=== PATIENT | male | born 1980 | race Two or more races ===

== ENCOUNTER 2020-03-17 00:35 | Emergency (ER) | payer MEDICAID ==
[~2020-03-17] VITALS: Ht 170.2 cm; Wt 52.6 kg
--- NOTE | 2020-03-17 00:40 | NUR ---
PT CAME TO THE ED C/O LOWER ABDOMINAL PAIN, TESTICULAR PAIN AND LOWER BACK PAIN. PT ALSO ENDORSES TESTIUCULAR SWELLING. PT AAOX4, RESPIRATIONS EVEN AND UNLABORED ON RA W/ NAD NOTED. PT CONNECTED TO THE MONITOR AND POX.
[2020-03-17] MEDS ORDERED: IBUPROFEN 400 MG TABLET ONE (01:03)
[2020-03-17] MEDS: IBUPROFEN 400 MG TABLET PO ONE (01:06)
[2020-03-17 01:10] LABS: APPEARANCE,URINE Clear (CLEAR); BILIRUBIN,URINE Negative (NEGATIVE); BLOOD, URINE Trace-lysed Ery/uL (NEGATIVE); COLOR,URINE Yellow (YELLOW); KETONES,URINE Negative (NEGATIVE); LEUKOCYTE ESTERASE ,URINE Negative (NEGATIVE); NITRITE, URINE Negative (NEGATIVE); PH,URINE 6.5 (5.0-8.0); PROTEIN,URINE 30 mg/dl (NEGATIVE); UGLUCOSE Negative (NEGATIVE); UROBILINOGEN,URINE 0.2 EU/dL (0.2)
--- NOTE | 2020-03-17 01:48 | NUR ---
ULTRASOUND AT BEDSIDE
[2020-03-17 01:51] LABS: BACTERIA,URINE Few /HPF (None Seen); MUCUS,URINE Few /LPF (None Seen); SQUAMOUS EPITHELIAL CELL,UR Rare /HPF (None Seen)
--- NOTE | 2020-03-17 03:48 | NUR ---
Patient discharged to home in stable condition. Written and verbal after care instructions given. Patient verbalizes understanding of instruction.
[2020-03-17 03:49] VITALS: BP 127/89
== END 2020-03-17 03:49 | disposition home or self-care (01) ==
LOC: ER 00:35
DX: N50.812 Left testicular pain (principal); N50.811 Right testicular pain; R10.30 Lower abdominal pain, unspecified
CPT/HCPCS: 76870-TC; 81000-TC

== ENCOUNTER 2020-10-06 12:37 | Emergency (ER) | payer MEDICAID ==
[~2020-10-06] VITALS: Ht 170.2 cm; Wt 70.3 kg
[2020-10-06 13:28] VITALS: BP 154/101
--- NOTE | 2020-10-06 13:38 | NUR ---
dr patrick at bedside for eval.
[2020-10-06] MEDS ORDERED: HYDROCODONE/APAP 10/325MG TABLET ONE (13:53)
[2020-10-06] MEDS ORDERED: HYDROCODONE/APAP 10/325MG TABLET PO ONE (14:00)
[2020-10-06 15:22] LABS: HEMATOCRIT 46 % (39-51); PLATELET COUNT (AUTO) 269 /CMM (150-450)
[2020-10-06 15:24] LABS: CALCIUM, SERUM 9.3 mg/dL (8.5-10.1); CARBON DIOXIDE 28 mmol/L (21-32); CHLORIDE 101 mmol/L (98-107); CREATININE 1.1 mg/dL (0.6-1.3); GLUCOSE 129 mg/dL (74-106); POTASSIUM 3.6 mmol/L (3.5-5.1); SODIUM SERUM 140 mmol/L (136-145); UREA NITROGEN, BLOOD 11 mg/dL (7-18)
[2020-10-06 15:27] LABS: BASOPHILS % (AUTO) 0.5 % (0.0-2.0); EOSINOPHILS % (AUTO) 0.8 % (0.0-6.0); HEMOGLOBIN 15.8 g/dL (13.5-17.5); LYMPHOCYTES # (AUTO) 1.4 /CMM (0.8-4.8); LYMPHOCYTES % (AUTO) 22.6 % (20.0-44.0); MEAN CORPUSCULAR HGB CONC 34 g/dl (31.0-36.0); MEAN CORPUSCULAR VOLUME 88 fL (80-96); MONOCYTES % (AUTO) 15.6 % (2.0-12.0); NEUTROPHILS # (AUTO) 3.8 /CMM (1.8-8.9); NEUTROPHILS % (AUTO) 60.5 % (43.0-81.0); RED BLOOD CELL COUNT(AUTO) 5.26 MIL/uL (4.5-6.0); WHITE BLOOD COUNT (AUTO) 6.3 K/uL (4.3-11.0)
[2020-10-06 15:30] LABS: ACETAMINOPHEN 0 ug/ml (10-30); ALANINE AMINOTRANSFERASE 44 U/L (12-78); ALBUMIN 4.5 g/dL (3.4-5.0); ALCOHOL, BLOOD < 3 mg/dL (0-0); ALKALINE PHOSPHATASE 81 U/L (46-116); ASPARTATE AMINOTRANSFERASE 27 U/L (15-37); BILIRUBIN,DIRECT 0.1 mg/dL (0.0-0.2); BILIRUBIN,TOTAL 0.2 mg/dL (0.2-1.0); TOTAL PROTEIN, SERUM 8.5 g/dL (6.4-8.2)
--- NOTE | 2020-10-06 15:40 | NUR ---
SS consult requested by for outpatient mental health resources. The pt. is a 40-year old male who presented in ED for dental pain. The pt. is alert & oriented x 4 and appears well-groomed. The pt. made appropriate eye contact and remained cooperative throughout interview. Pt.s mood is anxious & depressed. The pt. has fair insight and fair judgment. Pt. denies Hallucinations. Pt. denies ETOH/ Drug use. Pt. denies SI/HI. However, pt. stated that the tooth pain is so severe that he does not know if he is safe when alone. The pt. stated that he was at [facility] [[address] [place] [address] ] 1 week ago where he was placed on Lexapro. Pt. stated that he has been diagnosed with Bipolar Disorder and depression in the past. Pt. stated he has been feeling depressed for the past 5 months. Pt. Stated that the tooth pain has exacerbated his mental health symptoms. SW offered pt. to go to inpatient psychiatric services as he feels unsafe. Pt. was agreeable to plan. SW communicated D/C plan with Dominic Berg MD., MD to medically clear pt. for clinicals to be faxed. Plan: SW or ED to fax clinicals to [facility] [phone] FX: [phone] for inpatient psychiatric treatment. RICCARDO provided pt. with the following resources: Mental Health resources provided: [facility] [address] [place] [address] ; [facility] [place], [facility]. [address], [place] [address] ; [facility] [address] [place] [address] ; [place] [address] CounselingOutpatient:[facility]:[address] [place] [address] (Specializes in in-depth psychotherapy for emotional distress: anxiety, depression, interpersonal conflicts, life transitions, childhood abuse) [facility]: [address] [place] [address] (Assist with solving problem marital difficulties, separation & divorce, aging parents, & grief, chronic & terminal illness) [facility]: [address] [place] [address] (Deal with loss & grief, anxiety, marital difficulties) [facility] :[address], [address] [facility] [place] [address] (Provide in-home mental services to people who are incapable of leaving their homes) [facility]: [facility] [address] [place] [address]; [facility] Hospital[facility] Program [facility] Outpatient at [facility] :[address] [place] [address]; [facility] :[address] [place] [address]
[2020-10-06 16:09] LABS: LYMPHOCYTES % (MANUAL) 21 % (16-48); NEUTROPHILS % (MANUAL) 61 (42-76)
[2020-10-06 16:10] LABS: MONOCYTES % (MANUAL) 18 % (0-11.0)
[2020-10-06] MEDS ORDERED: OLANZAPINE 5 MG TABLET PO ONE (16:30)
[2020-10-06] MEDS ORDERED: OLANZAPINE 5 MG TABLET ONE (16:32)
--- NOTE | 2020-10-06 16:35 | NUR ---
augusto mcgee at bedside for psych eval.
== END 2020-10-06 18:07 | disposition home or self-care (01) ==
LOC: ER 12:40
DX: K08.89 Other specified disorders of teeth and supporting structures (principal); R45.851 Suicidal ideations; F15.959 Other stimulant use, unspecified with stimulant-induced psychotic disorder, unspecified; U07.1 COVID-19; R03.0 Elevated blood-pressure reading, without diagnosis of hypertension
CPT/HCPCS: 36415; 80048; 80076; 80299; 80307; 80320; 85007; 85025; 87426; 99283; C9803; G0480

== ENCOUNTER 2021-01-19 07:03 | Emergency (ER) | payer MEDICAID ==
[~2021-01-19] VITALS: Ht 165.1 cm; Wt 63.5 kg
[2021-01-19] MEDS ORDERED: ONDANSETRON HCL/PF 4 MG/2 ML VIAL IVP ONE (07:30)
[2021-01-19] MEDS ORDERED: IV NS 0.9% 1,000 ML BAG IV ONE (07:30)
[2021-01-19] MEDS ORDERED: MORPHINE SULFATE INJ 2 MG/ML DISP.SYRIN IV ONE (07:30)
[2021-01-19] MEDS ORDERED: ONDANSETRON HCL/PF 4 MG/2 ML VIAL ONE (07:33)
[2021-01-19] MEDS ORDERED: MORPHINE SULFATE INJ 4 MG/ML DISP.SYRIN ONE (07:33)
--- NOTE | 2021-01-19 07:35 | NUR ---
feliz from sober living facility for epigastric pain x 4 hrs with vomiting. Patient a/ox4, breathing even and unlabored, no sob noted. Dr. Brown at bedside for eval.
[2021-01-19 07:43] LABS: BASOPHILS % (AUTO) 0.7 % (0.0-2.0); EOSINOPHILS % (AUTO) 5.2 % (0.0-6.0); HEMATOCRIT 38 % (39-51); HEMOGLOBIN 12.5 g/dL (13.5-17.5); LYMPHOCYTES # (AUTO) 2.1 /CMM (0.8-4.8); LYMPHOCYTES % (AUTO) 31.7 % (20.0-44.0); MEAN CORPUSCULAR HGB CONC 33 g/dl (31.0-36.0); MEAN CORPUSCULAR VOLUME 90 fL (80-96); MONOCYTES # (AUTO) 0.8 /CMM (0.1-1.30); MONOCYTES % (AUTO) 11.8 % (2.0-12.0); NEUTROPHILS # (AUTO) 3.4 /CMM (1.8-8.9); NEUTROPHILS % (AUTO) 50.6 % (43.0-81.0); PLATELET COUNT (AUTO) 286 /CMM (150-450); RED BLOOD CELL COUNT(AUTO) 4.22 MIL/uL (4.5-6.0); WHITE BLOOD COUNT (AUTO) 6.8 K/uL (4.3-11.0)
[2021-01-19 08:20] LABS: CALCIUM, SERUM 8.3 mg/dL (8.5-10.1)
[2021-01-19 08:26] LABS: ALBUMIN 3.3 g/dL (3.4-5.0); BILIRUBIN,DIRECT 0.1 mg/dL (0.0-0.2); BILIRUBIN,TOTAL 0.2 mg/dL (0.2-1.0); TOTAL PROTEIN, SERUM 6.2 g/dL (6.4-8.2)
[2021-01-19] MEDS ORDERED: FAMOTIDINE/PF INJ 20 MG/2 ML VIAL IV ONE ×2 (09:00→09:08)
[2021-01-19] MEDS ORDERED: IOHEXOL-300 100 ML VIAL IV ONE (09:18)
--- NOTE | 2021-01-19 09:20 | NUR ---
PATIENT TAKEN TO RADIOLOGY FOR CT. IN STABLE CONDITION.
[2021-01-19] MEDS ORDERED: FAMO-131 PO (09:54)
[2021-01-19 10:12] VITALS: BP 135/79
--- NOTE | 2021-01-19 10:12 | NUR ---
Patient a/ox4, breathing even and unlabored, no sob noted, needs attended, ambulatory with steady gait. IV removed. Catheter intact and site benign. Pressure and 4x4 applied to site. No bleeding noted.Patient discharged to home in stable condition. Written and verbal after care instructions given. Patient verbalizes understanding of instruction.
== END 2021-01-19 10:13 | disposition home or self-care (01) ==
LOC: ER 07:04
DX: K59.00 Constipation, unspecified (principal); R10.13 Epigastric pain; R11.10 Vomiting, unspecified; F10.10 Alcohol abuse, uncomplicated; Y90.9 Presence of alcohol in blood, level not specified; Z79.899 Other long term (current) drug therapy
CPT/HCPCS: 36415; 74177; 80048; 80076; 83690; 85025; 96361; 96374; 96375; 99285; J2270; J2405; J3490; J7030; Q9967

== ENCOUNTER 2021-01-28 18:04 | Emergency (ER) | payer MEDICAID ==
[~2021-01-28] VITALS: Ht 170.2 cm; Wt 63.5 kg
[~2021-01-28 18:04] MED LIST: FAMO-131 PO
[2021-01-28 18:10] VITALS: BP 166/111
[2021-01-28] MEDS ORDERED: LEVO750T46 PO (18:47)
[2021-01-28] MEDS ORDERED: HYDR-4303 PO (18:47)
[2021-01-28] MEDS ORDERED: ONDA4TAB5 PO (18:47)
[2021-01-28] MEDS ORDERED: METR-147 PO (18:47)
[2021-01-28] MEDS ORDERED: MAG HYDROX/AL HYDROX/SIMETH 30 ML UDC ONE (18:48)
[2021-01-28] MEDS ORDERED: LIDOCAINE VISCOUS 2% UD 15 ML UDC ONE (18:48)
[2021-01-28] MEDS ORDERED: LIDOCAINE VISCOUS 2% UD 15 ML UDC MM ONE (19:00)
[2021-01-28] MEDS ORDERED: MAG HYDROX/AL HYDROX/SIMETH 30 ML UDC PO ONE (19:00)
--- NOTE | 2021-01-28 19:04 | NUR ---
Patient discharged to home in stable condition. Written and verbal after care instructions given. Patient verbalizes understanding of instruction.
--- NOTE | 2021-01-28 19:05 | NUR ---
Patient able to ambulated non difficulties agrees to piock up meds to pharmacy .
== END 2021-01-28 19:06 | disposition home or self-care (01) ==
LOC: ER 18:06
DX: K08.89 Other specified disorders of teeth and supporting structures (principal); Z79.899 Other long term (current) drug therapy

== ENCOUNTER 2021-02-02 15:29 | Emergency (ER) | payer MEDICAID ==
[~2021-02-02 15:29] MED LIST changes: +HYDR-4303 PO; +LEVO750T46 PO; +METR-147 PO; +ONDA4TAB5 PO
--- NOTE | 2021-02-02 15:41 | NUR ---
called to triage. no answer
--- NOTE | 2021-02-02 15:46 | NUR ---
called for triage not in the waiting room
--- NOTE | 2021-02-02 16:10 | NUR ---
called for triage not in the waiting room
== END 2021-02-02 16:17 | disposition home or self-care (01) ==
LOC: ER 15:35
DX: Z53.21 Procedure and treatment not carried out due to patient leaving prior to being seen by health care provider (principal)

== ENCOUNTER 2021-03-29 16:50 | Emergency (ER) | payer MEDICAID ==
[~2021-03-29] VITALS: Ht 170.2 cm; Wt 63.5 kg
--- NOTE | 2021-03-29 17:00 | NUR ---
AAOX3, came to ER c/o left jaw pain x 1 month. RR is even and unlabored with nad noted. Tachycardic upon assessment. Skin is warm and dry. Awaiting md for eval.
--- NOTE | 2021-03-29 17:48 | NUR ---
bossmanp pa at bedside for eval.
--- NOTE | 2021-03-29 18:00 | NUR ---
prosthetic lab technician at bedside for blood draw.
--- NOTE | 2021-03-29 18:06 | NUR ---
pt to radiology fot head and facial ct scan via wheelchair.
[2021-03-29 18:08] LABS: BASOPHILS # (AUTO) 0.1 /CMM (0.0-0.2); BASOPHILS % (AUTO) 1.2 % (0.0-2.0); EOSINOPHILS % (AUTO) 1.6 % (0.0-6.0); HEMATOCRIT 41 % (39-51); HEMOGLOBIN 13.8 g/dL (13.5-17.5); LYMPHOCYTES # (AUTO) 2.1 /CMM (0.8-4.8); LYMPHOCYTES % (AUTO) 25.3 % (20.0-44.0); MEAN CORPUSCULAR HGB CONC 34 g/dl (31.0-36.0); MEAN CORPUSCULAR VOLUME 88 fL (80-96); MONOCYTES # (AUTO) 0.9 /CMM (0.1-1.30); MONOCYTES % (AUTO) 10.8 % (2.0-12.0); NEUTROPHILS # (AUTO) 5.1 /CMM (1.8-8.9); NEUTROPHILS % (AUTO) 61.1 % (43.0-81.0); PLATELET COUNT (AUTO) 406 /CMM (150-450); RED BLOOD CELL COUNT(AUTO) 4.65 MIL/uL (4.5-6.0); WHITE BLOOD COUNT (AUTO) 8.4 K/uL (4.3-11.0)
[2021-03-29 18:16] LABS: CALCIUM, SERUM 9.2 mg/dL (8.5-10.1); CREATININE 1.1 mg/dL (0.6-1.3); POTASSIUM 3.8 mmol/L (3.5-5.1)
--- NOTE | 2021-03-29 19:21 | NUR ---
Patient discharged to home in stable condition. Written and verbal after care instructions given. Patient verbalizes understanding of instruction. PT ambulatory with a steady gait
[2021-03-29 19:23] VITALS: BP 125/68
[2021-03-29] MEDS ORDERED: KETOROLAC TROMETHAMINE INJ 30 MG/ML VIAL IM ONE (19:30)
== END 2021-03-29 19:21 | disposition home or self-care (01) ==
LOC: ER 16:56
DX: K08.89 Other specified disorders of teeth and supporting structures (principal); G89.29 Other chronic pain; R51.9 Headache, unspecified; F15.10 Other stimulant abuse, uncomplicated; F17.200 Nicotine dependence, unspecified, uncomplicated; Z79.899 Other long term (current) drug therapy
CPT/HCPCS: 36415; 70450-TC; 70486-TC; 80048-TC; 85025-TC

== ENCOUNTER 2021-09-17 18:26 | Emergency (ER) | payer MEDICAID ==
[~2021-09-17] VITALS: Ht 170.2 cm; Wt 63.5 kg
--- NOTE | 2021-09-17 21:42 | NUR ---
BIBS. AAOX4. NOT IN RESP DISTRESS. AMBULATORY. CAME IN FOR TOOTHACHE WHICH IS CAUSING HIM TO BE SUICIDAL, NO SPECIFIC PLAN THOUGH. PT IS ON HIS PHONE WATCHING. PT IS SEEKING VOLUNTARY ADMISSION. DENIES HI. NO HALLUCINATIONS VERBALIZED. PROVIDER WAS AT THE BEDSIDE FOR EVAL.
[2021-09-17 22:42] LABS: BASOPHILS % (AUTO) 0.4 % (0.0-2.0); EOSINOPHILS % (AUTO) 0.8 % (0.0-6.0); HEMATOCRIT 41 % (39-51); HEMOGLOBIN 13.4 g/dL (13.5-17.5); LYMPHOCYTES # (AUTO) 1.8 K/uL (0.8-4.8); LYMPHOCYTES % (AUTO) 15.3 % (20.0-44.0); MEAN CORPUSCULAR HGB CONC 33 g/dl (31.0-36.0); MEAN CORPUSCULAR VOLUME 89 fL (80-96); MONOCYTES # (AUTO) 1.4 K/uL (0.1-1.30); MONOCYTES % (AUTO) 11.7 % (2.0-12.0); NEUTROPHILS # (AUTO) 8.4 K/uL (1.8-8.9); NEUTROPHILS % (AUTO) 71.8 % (43.0-81.0); PLATELET COUNT (AUTO) 426 K/uL (150-450); RED BLOOD CELL COUNT(AUTO) 4.55 MIL/uL (4.5-6.0); WHITE BLOOD COUNT (AUTO) 11.6 K/uL (4.3-11.0)
[2021-09-17 22:54] LABS: CALCIUM, SERUM 9.9 mg/dL (8.5-10.1); CARBON DIOXIDE 30 mmol/L (21-32); CHLORIDE 98 mmol/L (98-107); CREATININE 1.4 mg/dL (0.6-1.3); GLUCOSE 101 mg/dL (74-106); POTASSIUM 4.5 mmol/L (3.5-5.1); SODIUM SERUM 136 mmol/L (136-145); UREA NITROGEN, BLOOD 25 mg/dL (7-18)
[2021-09-17 23:01] LABS: ALANINE AMINOTRANSFERASE 31 U/L (12-78); ALBUMIN 4.8 g/dL (3.4-5.0); ALCOHOL, BLOOD < 3 mg/dL (0-0); ALKALINE PHOSPHATASE 92 U/L (46-116); ASPARTATE AMINOTRANSFERASE 30 U/L (15-37); BILIRUBIN,DIRECT 0.1 mg/dL (0.0-0.2); BILIRUBIN,TOTAL 0.4 mg/dL (0.2-1.0); TOTAL PROTEIN, SERUM 8.3 g/dL (6.4-8.2)
[2021-09-17 23:03] LABS: ACETAMINOPHEN < 0 ug/ml (10-30)
[2021-09-18 04:11] LABS: BILIRUBIN,URINE SMALL (NEGATIVE); COLOR,URINE YELLOW (YELLOW); LEUKOCYTE ESTERASE ,URINE NEGATIVE (NEGATIVE); NITRITE, URINE NEGATIVE (NEGATIVE); PH,URINE 5.5 (5.0-8.0); PROTEIN,URINE TRACE mg/dl (NEGATIVE); UGLUCOSE NEGATIVE (NEGATIVE); UROBILINOGEN,URINE 0.2 EU/dL (0.2)
[2021-09-18 05:06] LABS: BACTERIA,URINE Few /HPF (None Seen); RBC,URINE NONE SEEN /HPF (0-2); SQUAMOUS EPITHELIAL CELL,UR Rare /HPF (None Seen); WBC,URINE 0-3 /HPF (0-3)
--- NOTE | 2021-09-18 07:01 | NUR ---
Note cristine in EDM - 09/18/21 at 0701 by FABIÁN PT IS ACCEPTED AT THE [facility] UNDER THE CARE OF DR. BARBOSA. CALL [phone] EXT [phone] FOR REPORT.
--- NOTE | 2021-09-18 10:45 | NUR ---
CALLED [facility] INTAKE AWAITING ACCEPTENCE PER ALAN.
--- NOTE | 2021-09-18 13:40 | NUR ---
SO [facility] ACCEPTED THE PT. [phone] FOR REPORT UNIT 2 PER ALAN
--- NOTE | 2021-09-18 13:45 | NUR ---
report given to Ramon WILSON
--- NOTE | 2021-09-18 14:36 | NUR ---
[facility] CALLED TRANSPORT ETA 60 MINS PER KARISSA
[2021-09-18 15:00] VITALS: BP 116/58
--- NOTE | 2021-09-18 15:50 | NUR ---
Patient eloped from facility. ER MD notified.
== END 2021-09-18 15:51 | disposition left against medical advice (07) ==
LOC: ER 18:28
DX: R45.851 Suicidal ideations (principal); K08.89 Other specified disorders of teeth and supporting structures; R68.84 Jaw pain; Z82.49 Family history of ischemic heart disease and other diseases of the circulatory system; Z53.29 Procedure and treatment not carried out because of patient's decision for other reasons; F17.200 Nicotine dependence, unspecified, uncomplicated; Z20.822 Contact with and (suspected) exposure to COVID-19
CPT/HCPCS: 36415; 80048; 80076; 80143; 80307; 80320; 81001; 85025; 87426; 99285; C9803; G0480

== ENCOUNTER 2021-11-17 05:54 | Emergency (ER) | payer MEDICAID ==
[~2021-11-17] VITALS: Ht 170.2 cm; Wt 63.5 kg
--- NOTE | 2021-11-17 06:19 | NUR ---
ROMINA FROM HOME C/O LEFT SIDED JAW PAIN POST TOOTH SURGERY 2 MONTHS AGO. PT A/O, VSS, PT REQ. PAIN MEDS.
[2021-11-17] MEDS ORDERED: KETOROLAC TROMETHAMINE INJ 30 MG/ML VIAL ONE (06:23)
[2021-11-17] MEDS ORDERED: BUPIVACAINE 0.5 % PF 150 MG/30 ML VIAL ONE (06:27)
[2021-11-17] MEDS ORDERED: BUPIVACAINE 0.5 % PF 150 MG/30 ML VIAL IJ ONE (06:30)
[2021-11-17] MEDS ORDERED: KETOROLAC TROMETHAMINE INJ 60 MG/2 ML VIAL IM ONE (06:30)
[2021-11-17] MEDS ORDERED: AMOX-430 PO (07:09)
--- NOTE | 2021-11-17 07:16 | NUR ---
Patient discharged to home in stable condition. Written and verbal after care instructions given. Patient verbalizes understanding of instruction.
[2021-11-17] MEDS ORDERED: NAPR500T6 PO (07:17)
[2021-11-17 07:18] VITALS: BP 137/69
== END 2021-11-17 07:19 | disposition home or self-care (01) ==
LOC: ER 06:05
DX: K08.89 Other specified disorders of teeth and supporting structures (principal); G89.29 Other chronic pain; F17.210 Nicotine dependence, cigarettes, uncomplicated; Z79.899 Other long term (current) drug therapy
CPT/HCPCS: 64400; 96372; 99284; 99406; J1885; J3490

== ENCOUNTER 2022-02-26 11:12 | Emergency (ER) | payer MEDICAID ==
[~2022-02-26] VITALS: Ht 170.2 cm; Wt 63.5 kg
[~2022-02-26 11:12] MED LIST changes: +AMOX-430 PO; +NAPR500T6 PO
--- NOTE | 2022-02-26 11:14 | NUR ---
CALLED PT IN WAITING ROOM, NO RESPONSE.
[2022-02-26 11:24] VITALS: BP 100/70
--- NOTE | 2022-02-26 11:30 | NUR ---
BIBS FOR RT ELBOW INJURY. RATES PAIN 6/10. WILL CONTINUE TO MONITOR THE PATIENT.
[2022-02-26] MEDS ORDERED: IBUP-1955 PO (12:42)
--- NOTE | 2022-02-26 12:46 | NUR ---
Patient discharged to home in stable condition. Written and verbal after care instructions given. Patient verbalizes understanding of instruction.
[2022-02-26] MEDS ORDERED: IBUPROFEN 600 MG TABLET PO ONE (13:00)
== END 2022-02-26 12:48 | disposition home or self-care (01) ==
LOC: ER 11:15
DX: S59.801A Other specified injuries of right elbow, initial encounter (principal); F17.200 Nicotine dependence, unspecified, uncomplicated; Z60.2 Problems related to living alone; Z79.899 Other long term (current) drug therapy; X50.9XXA Other and unspecified overexertion or strenuous movements or postures, initial encounter; Y93.89 Activity, other specified; Y92.89 Other specified places as the place of occurrence of the external cause; Y99.8 Other external cause status
CPT/HCPCS: 73080-TC

== ENCOUNTER 2025-09-15 22:31 | Emergency (ER) | payer MEDICAID ==
[~2025-09-15] VITALS: Ht 167.6 cm; Wt 61.2 kg
[~2025-09-15 22:31] MED LIST changes: +IBUP-1955 PO
[2025-09-15] MEDS ORDERED: MAG HYDROX/AL HYDROX/SIMETH 30 ML UDC ONE (23:25)
[2025-09-15] MEDS ORDERED: LIDOCAINE VISCOUS 2% UD 15 ML UDC ONE (23:25)
[2025-09-15] MEDS ORDERED: ONDANSETRON HCL/PF 4 MG/2 ML VIAL ONE (23:25)
[2025-09-15] MEDS ORDERED: FAMOTIDINE/PF INJ 20 MG/2 ML VIAL IV ONE (23:26)
[2025-09-15] MEDS: MAG HYDROX/AL HYDROX/SIMETH 30 ML UDC PO ONE (23:32)
[2025-09-15] MEDS: LIDOCAINE VISCOUS 2% UD 15 ML UDC MM ONE (23:32)
[2025-09-15] MEDS: ONDANSETRON HCL/PF 4 MG/2 ML VIAL IVP ONE (23:32)
[2025-09-15] MEDS: FAMOTIDINE/PF INJ 20 MG/2 ML VIAL IV ONE (23:32)
[2025-09-15] MEDS: IV LR 1000 ML 1,000 ML IV ONE (23:32)
[2025-09-15 23:37] LABS: PLATELET COUNT (AUTO) 479 K/uL (150-450); RED BLOOD CELL COUNT(AUTO) 4.36 MIL/uL (4.5-6.0); RED CELL DISTRIBUTION WIDTH 13.1 % (11.5-15.0); WHITE BLOOD COUNT (AUTO) 9.8 K/uL (4.3-11.0)
[2025-09-15 23:43] LABS: CALCIUM, SERUM 9.0 mg/dL (8.5-10.1); CREATININE 1.3 mg/dL (0.6-1.3); SODIUM SERUM 136.0 mmol/L (136-145); UREA NITROGEN, BLOOD 34.0 mg/dL (7-18)
[2025-09-15 23:51] LABS: ASPARTATE AMINOTRANSFERASE 29.0 U/L (15-37); TOTAL PROTEIN, SERUM 7.9 g/dL (6.4-8.2)
[2025-09-16] MEDS ORDERED: HALOPERIDOL LACTATE INJ 5 MG/ML VIAL ONE (00:35)
[2025-09-16] MEDS: HALOPERIDOL LACTATE INJ 5 MG/ML VIAL IV ONE (00:38)
[2025-09-16] MEDS ORDERED: POTASSIUM CHLORIDE 20 MEQ TAB.PRT.SR PO ONE (02:06)
[2025-09-16] MEDS: POTASSIUM CHLORIDE 20 MEQ TAB.PRT.SR PO ONE (02:33)
[2025-09-16 03:14] LABS: BARBITURATE, URINE NEGATIVE (NEGATIVE); BENZODIAZEPINE, URINE NEGATIVE (NEGATIVE); COCCAINE, URINE NEGATIVE (NEGATIVE); OPIATE, URINE NEGATIVE (NEGATIVE)
[2025-09-16 03:16] LABS: AMPHETAMINE, URINE POSITIVE (NEGATIVE); CANNABINOID, URINE POSITIVE (NEGATIVE)
[2025-09-16 05:32] VITALS: BP 135/65; TEMP 98; O2SAT 96
== END 2025-09-16 05:32 | disposition home or self-care (01) ==
LOC: ER 22:36
DX: R11.2 Nausea with vomiting, unspecified (principal); F17.200 Nicotine dependence, unspecified, uncomplicated; Z60.2 Problems related to living alone; Z79.1 Long term (current) use of non-steroidal anti-inflammatories (NSAID); Z79.899 Other long term (current) drug therapy
CPT/HCPCS: 99284; 96374; 96361; 96375 ×2; 85025; 80048; 83690; 80076; 36415; 80320; 80307; J1308; J2405; J7120 ×2; J1630; G0480